=== PATIENT | female | born 1955 | race Caucasian/White ===

== ENCOUNTER 2019-10-29 20:29 | Inpatient (IN) | payer MEDICARE ==
[~2019-10-29] VITALS: Ht 155 cm; Wt 49.0 kg
[~2019-10-29 20:29] MED LIST: BACTRIM DS 8001 TAB PO; FLEXERIL5 MG PO; HYDROCODONE BIT1 T11 PO; IBU800 MG PO; KEFLEX500 M1 PO; MOTRIN800 MG PO; MULTI VITAMINS1 TAB PO; VITAMIN B121000 MC1 PO
[2019-10-29 20:36] VITALS: BP 151/55
--- NOTE | 2019-10-29 21:19 | NUR ---
PT ALSO REPORTS THAT SHE HAS HAD A UTI AND HAD BEEN TAKING BACTRIM BUT HAS BEEN VOMITING IT UP AND NOW WAS PRESCRIBED CIPRO BUT HAS NOT BEEN TO PICK IT UP YET. PT ALSO HAS A HX OF KIDNEY STONES.
[2019-10-29 21:26] LABS: BASO % 0.3 % (0.0-1.0); EOS % 0.2 % (1.0-4.0); HEMATOCRIT 38.9 % (37.0-47.0); LYMPH # 1.5 10*3/uL (1.3-4.4); LYMPH % 11.3 % (27.0-41.0); MEAN CELL VOLUME 91.5 fl (81.0-99.0); MEAN CORPUSCULAR HGB 31.1 pg (27.0-31.0); MEAN CORPUSCULAR HGB CONC 33.9 g/dl (33.0-37.0); MEAN PLATELET VOLUME 10.4 fl (9.6-12.3); MONO # 1.2 10*3/uL (0.1-1.0); MONO % 8.9 % (3.0-9.0); NEUT # 10.1 10*3/uL (2.3-7.9); NEUT % 77.2 % (47.0-73.0); PLATELET COUNT AUTOMATED 234 10*3/uL (130-400); RED BLOOD COUNT 4.25 10*6/uL (4.10-5.10); RED CELL DISTRI WIDTH 12.5 % (0-14.5); WHITE BLOOD COUNT 13.1 10*3/uL (4.8-10.8)
[2019-10-29 21:36] LABS: ACT PARTIAL THROMBO TIME 21.4 SECONDS (20.0-32.1)
[2019-10-29 21:41] LABS: ALBUMIN 2.3 gm/dl (3.1-4.5); ALKALINE PHOSPHATASE 104 U/L (45-117); BUN 25 mg/dl (7-24); CHLORIDE 92 mmol/L (98-107); CREATININE 0.95 mg/dL (0.55-1.02); SGOT/AST 12 IU/L (3-35); SGPT/ALT 21 U/L (12-78); SODIUM 129 mmol/L (136-145); TOTAL PROTEIN 7.2 gm/dL (6.4-8.2)
[2019-10-29 22:11] LABS: CLARITY SL CLOUDY (CLEAR); COLOR YELLOW (YELLOW); GLUCOSE 3+ (NEGATIVE)
[2019-10-29 22:12] LABS: BACTERIA TRACE; BILIRUBIN NEGATIVE (NEGATIVE); BLOOD TRACE-INTACT (NEGATIVE); KETONE TRACE (NEGATIVE); LEUKO ESTERASE TRACE (NEGATIVE); NITRITE NEGATIVE (NEGATIVE); UROBILINOGEN 0.2 E.U./dl (0.2-1.0)
[2019-10-29 22:51] VITALS: BP 155/74
--- NOTE | 2019-10-29 22:51 | NUR ---
PT REPORTS THAT SHE IS FEELING IMPROVED WITH MEDICATIONS GIVEN. SHE IS RESTING IN ROOM. NO SIGNS OF ACUTE DISTRESS NOTED. CALL BLISS WITHIN REACH.
[2019-10-30] VITALS: BP 158/86
[2019-10-30 00:35] VITALS: BP 158/86
--- NOTE | 2019-10-30 00:35 | NUR ---
Time: 34 A 64 year old FEMALE admitted to 4E under services of SCOT CARSON DO. Pt. arrived via wheel chair from ER. Chief complaint: CAME IN WITH C/OABDOMINAL PAIN WHEN VOIDIMG AND S/SOF UTI. JUDY SALAZAR
[2019-10-30] MEDS ORDERED: GOOD SENSE ASPI81 M1 PO (02:17)
[2019-10-30 06:32] LABS: CHOLESTEROL 121 mg/dL (<200); HDL CHOLESTEROL 16 mg/dl (40-60); LDL CHOLESTEROL 74 mg/dL (9-159); TRIGLYCERIDES 153 mg/dl (<150); VLDL CHOLESTEROL 31 mg/dL (6-40)
[2019-10-30 08:00] VITALS: BP 122/55
--- NOTE | 2019-10-30 09:00 | NUR ---
Nursing Teacher in to talk to patient. Patient states lives at home with alone. There are no steps in the home. Physician: kristen liz [facility]acy: [facility] Homeland health services: none Patient's level of ADLs: INDEPENDENT Patient has working utilities: all working DME: none Follow-up physician's appointment after d/c: will be made by hospitalist nurse director upon discharge Does patient want to access PORTAL?: no Discharge plan discussed with patient, she states she lives at home alone, she is independent in adls and ambulation, works, drives, she states she will return home when medically stable and denies any home needs. TERRY REYNOSO
--- NOTE | 2019-10-30 11:32 | NUR ---
Nutritional Support Services Note: Instructed pt on 1800cal diabetic diet. Diet copy given to pt. Pt listened, has a fairly good understanding of the diet. Normally eats three meals daily and has a night snack on occasion. Eats a healhty diet. Encouraged follow up if needed. All questions were answered. Paulina Gupta Rdn Ld
[2019-10-30 12:00] VITALS: BP 156/67
[2019-10-30 16:00] VITALS: BP 132/64
[2019-10-30 20:00] VITALS: BP 137/47
[2019-10-31] VITALS: BP 130/50
[2019-10-31 06:08] LABS: BASO % 0.3 % (0.0-1.0); EOS # 0.1 10*3/uL (0.0-0.4); EOS % 0.8 % (1.0-4.0); HEMATOCRIT 34.7 % (37.0-47.0); LYMPH # 1.2 10*3/uL (1.3-4.4); LYMPH % 9.7 % (27.0-41.0); MEAN CELL VOLUME 93.3 fl (81.0-99.0); MEAN CORPUSCULAR HGB 30.6 pg (27.0-31.0); MEAN CORPUSCULAR HGB CONC 32.9 g/dl (33.0-37.0); MEAN PLATELET VOLUME 10.3 fl (9.6-12.3); MONO # 0.9 10*3/uL (0.1-1.0); MONO % 7.1 % (3.0-9.0); NEUT # 10.2 10*3/uL (2.3-7.9); NEUT % 80.6 % (47.0-73.0); PLATELET COUNT AUTOMATED 245 10*3/uL (130-400); RED BLOOD COUNT 3.72 10*6/uL (4.10-5.10); RED CELL DISTRI WIDTH 12.6 % (0-14.5); WHITE BLOOD COUNT 12.6 10*3/uL (4.8-10.8)
[2019-10-31 06:30] LABS: ALBUMIN 1.8 gm/dl (3.1-4.5); CHLORIDE 106 mmol/L (98-107); POTASSIUM 4.5 mmol/L (3.5-5.1); SGOT/AST 12 IU/L (3-35); SGPT/ALT 16 U/L (12-78); SODIUM 137 mmol/L (136-145)
[2019-10-31 06:34] LABS: ALKALINE PHOSPHATASE 78 U/L (45-117); BUN 19 mg/dl (7-24); CREATININE 0.59 mg/dL (0.55-1.02); TOTAL PROTEIN 5.9 gm/dL (6.4-8.2)
[2019-10-31 08:00] VITALS: BP 133/54
--- NOTE | 2019-10-31 10:30 | NUR ---
Occupational therapy orders received and OT evaluation completed in full on floor four. Patient precautions include fall risk, decreased standing balance, IV, generalized weakness, and ww use. Per OT eval, OT recommends SNF at discharge to maximize patient independence and safety. If refused, OT recommends home with HH SN, OT, and PT with family 05/02 supervision assist in a first floor set-up home with minimal to no steps inside/outside due to patient's balance and safety. [place] complexity [place], [address]. Thank you for this referral. Yas Pagan, OTR/L
--- NOTE | 2019-10-31 11:07 | NUR ---
case management talks with patient, she will return home when medically stable and denies any home needs, case management will follow
--- NOTE | 2019-10-31 11:28 | NUR ---
Physical Therapy evaluation completed on 4th floor with full evaluation to follow. Recommend physical therapy per plan of care and SNF/rehab upon discharge. If pt to go home would recomend home with family/assist 24 hr care full services use of [facility] first floor set up upon discharge as limited mobility and unable to do stairs at this time. Thank you for this referral. Christin Arreguin PT
[2019-10-31 12:00] VITALS: BP 148/48
--- NOTE | 2019-10-31 12:40 | NUR ---
case management received a message from PT and OT that patient would benefit from a short term stay at a [facility] for rehab. case management contacted patient, discussed this with her and educated her that she would receive 5 days of physical and occupational therapy and when medically stable be discharged to home. patient stated she did not want to go to a SNF. she would be returning home and her family would be taking turns staying with her. discussed with her vNA and she declines any home services at this time, case management will follow
[2019-10-31 16:00] VITALS: BP 147/54
[2019-10-31 20:00] VITALS: BP 143/46
--- NOTE | 2019-10-31 20:25 | NUR ---
24 HR chart check completed.
--- NOTE | 2019-10-31 21:00 | NUR ---
SLEEPING, AWAKENS EASILY. RESPIRATIONS EASY. LUNGS DIMINISHED, CLEAR. PULSE OX 100% RA. DENIES DYSURIA. CALL LIGHT WITHIN REACH. NO VOICED COMPLAINTS
[2019-11-01] VITALS: BP 156/52
--- NOTE | 2019-11-01 | NUR ---
SLEEPING. NO DISTRESS NOTED. RESPIRATIONS EASY. VSS. CALL LIGHT WITHIN REACH
--- NOTE | 2019-11-01 06:00 | NUR ---
SLEPT THROUGHOUT NIGHT WITH NO DISTRESS NOTED. RESPIRATIONS EASY. CALL LIGHT WITHIN REACH. NO VOICED COMPLAINTS THIS SHIFT
[2019-11-01 06:39] LABS: BASO # 0.1 10*3/uL (0.0-0.1); BASO % 0.4 % (0.0-1.0); EOS # 0.1 10*3/uL (0.0-0.4); EOS % 0.7 % (1.0-4.0); LYMPH # 1.6 10*3/uL (1.3-4.4); LYMPH % 11.7 % (27.0-41.0); MEAN CELL VOLUME 93.9 fl (81.0-99.0); MEAN CORPUSCULAR HGB 30.9 pg (27.0-31.0); MEAN CORPUSCULAR HGB CONC 32.9 g/dl (33.0-37.0); MONO # 0.8 10*3/uL (0.1-1.0); MONO % 5.7 % (3.0-9.0); NEUT # 10.7 10*3/uL (2.3-7.9); NEUT % 80.3 % (47.0-73.0); PLATELET COUNT AUTOMATED 251 10*3/uL (130-400); RED BLOOD COUNT 3.62 10*6/uL (4.10-5.10); RED CELL DISTRI WIDTH 12.5 % (0-14.5); WHITE BLOOD COUNT 13.4 10*3/uL (4.8-10.8)
[2019-11-01 06:58] LABS: BUN 17 mg/dl (7-24); CHLORIDE 103 mmol/L (98-107); CREATININE 0.67 mg/dL (0.55-1.02); POTASSIUM 4.3 mmol/L (3.5-5.1); SODIUM 136 mmol/L (136-145)
[2019-11-01 08:00] VITALS: BP 127/61
[2019-11-01 12:00] VITALS: BP 142/68
[2019-11-01 16:00] VITALS: BP 135/61
[2019-11-01 20:00] VITALS: BP 119/62
--- NOTE | 2019-11-01 20:15 | NUR ---
PATIENT ASSESSMENT COMPLETED WITHOUT INCIDENT, PATIENT SEATED UP IN CHAIR AND DENIES ANY NEEDS OR COMPLAINTS AT THIS TIME. WILL CONTINUE TO MONITOR.
--- NOTE | 2019-11-01 21:26 | NUR ---
24 HOUR CHART CHECK COMPLETED
[2019-11-02] VITALS: BP 131/53
[2019-11-02 05:58] LABS: BUN 17 mg/dl (7-24); CHLORIDE 103 mmol/L (98-107); CREATININE 0.65 mg/dL (0.55-1.02); POTASSIUM 4.4 mmol/L (3.5-5.1); SODIUM 136 mmol/L (136-145)
[2019-11-02 06:15] LABS: BASO % 0.2 % (0.0-1.0); EOS # 0.1 10*3/uL (0.0-0.4); EOS % 0.8 % (1.0-4.0); LYMPH # 1.6 10*3/uL (1.3-4.4); LYMPH % 12.4 % (27.0-41.0); MEAN CELL VOLUME 93.6 fl (81.0-99.0); MEAN CORPUSCULAR HGB 30.7 pg (27.0-31.0); MEAN CORPUSCULAR HGB CONC 32.9 g/dl (33.0-37.0); MEAN PLATELET VOLUME 10.2 fl (9.6-12.3); MONO # 0.6 10*3/uL (0.1-1.0); MONO % 4.9 % (3.0-9.0); NEUT # 10.2 10*3/uL (2.3-7.9); NEUT % 81.1 % (47.0-73.0); PLATELET COUNT AUTOMATED 300 10*3/uL (130-400); RED BLOOD COUNT 3.74 10*6/uL (4.10-5.10); RED CELL DISTRI WIDTH 12.6 % (0-14.5); WHITE BLOOD COUNT 12.5 10*3/uL (4.8-10.8)
[2019-11-02 08:00] VITALS: BP 146/50
[2019-11-02] MEDS ORDERED: LANTUS SOL100 UNIT/1 SQ (10:01)
[2019-11-02] MEDS ORDERED: NOVOLOG FL100 UNIT/2 SC (10:01)
[2019-11-02] MEDS ORDERED: GLUCOPHAGE500 MG PO (10:02)
--- NOTE | 2019-11-02 10:39 | NUR ---
PT REQUEST RAPID COVID TEST DUE TO FACT THAT SHE WORKS IN [employer]. MIGUELINA RODRIGUEZ AGREED TO PERFORM TEST.
[2019-11-02 12:00] VITALS: BP 148/60
[2019-11-02 16:00] VITALS: BP 153/43
[2019-11-02 20:00] VITALS: BP 158/52
--- NOTE | 2019-11-02 23:43 | NUR ---
24 HOUR CHART CHECK COMPLETED
[2019-11-03] VITALS: BP 126/44
--- NOTE | 2019-11-03 07:00 | NUR ---
ARRIVED ON SHIFT, BED IN LOW POSITION, WHEELLOCKS ENGAGED, BED IN LOW POSITION, SIDE RAILS UP X 2, CALL LIGHT WITHIN REACH, NO NEEDS VOICED AT THIS TIME, WHITE BOARD UPDATED.
[2019-11-03 08:00] VITALS: BP 140/68; BP 145/63
--- NOTE | 2019-11-03 08:03 | NUR ---
Shift chart check completed.
--- NOTE | 2019-11-03 08:30 | NUR ---
case management received a message that patient may not be able to afford her medications and she also needed a bedside commode and a walker and home health, patient has [employer] insurance and given her the choice of companies that accept [employer] she chose [facility]. contact [facility], spoke to Tameka, she transferred the call to Margarita, coordinator of online programs, message was left on her voicemail that patient is discharging home today. case management also contacted [facility] regarding a walker and a bedside commode, neither of these DME companies accept patient's insurance. contacted [facility], spoke to Isa, patient's script and information faxed to [facility]. Isa stated insurance would not pay for a bedside commode and they were waiting on walker to arrive in their story. she stated as soon as the walker arrived they would deliver it to the patient. case management also received a message that patient may be unable to afford her medications. case management contacted Francisco at [facility]. he checked the cost of patient's insurance and stated she still had a deductible of $147 and her two insulin prescriptions would be $287. case management contacted [facility] pharmacy regarding the cost of insulin, each insulin would cost patient $4. educated patient regarding this, she will be getting her prescriptions in [facility] pharmacy. patient's nurse also notified
--- NOTE | 2019-11-03 11:05 | NUR ---
PHYSICAL THERAPY Patient seen this am 1:1 for therapy visit and was sitting up in bedside chair upon therapist arrival. Patient identified by name / and was very pleasant this morning, voicing no new c/o's. OT teachers' assistant was also present for observation only this session as patient transfers sit to stand SBA X 1. Patient ambulates with use of wh walker, 40'x 1, demonstrating very slow, cautious gait pattern, decreased stride and quick onset of fatigue. Patient needed brief standing rest break < 30 seconds, with v/c for purse lip breathing technique to safely complete gait ex. Patient returned to bedside chair and was very unsteady during 180 turn around. Patient remained in bedside chair with call light, tray table and telephone. Will continue per POC as tolerated, total treatment time 14 minutes. Madan Leslie, FAMILY PSYCHOLOGIST
--- NOTE | 2019-11-03 11:05 | NUR ---
OT NOTE Pt was seen this A.M. 1:1 for 15 minute OT session. Upon arrival pt was sitting upright in the recliner. Pt identified by name and and had no complaints at this time. Pt donned B tennis shoes with SBA. Sit to stand then completed from chair level with CGA. Functional mobility was then completed to the bathroom and back with CGA and use of w/w. Throughout pt required one standing rest break due to quick onset of fatigue and having complaints of feeling "a little light headed" educated pt on breathing and relaxation techniques. Challenged pt's static standing tolerance needed for increased I in self care tasks and functional transfers. Pt was able to tolerate aprox 4 minutes at a time before sitting due to fatigue. Pt was left sitting upright in the recliner with call light in hand, tray table in place, and phone in reach. Continue with POC as able. CASA Giraldo/Ana
--- NOTE | 2019-11-03 11:15 | NUR ---
Discharge instructions reviewed with patient/family. Patient receptive and verbalizes understanding. Follow-up care arranged. Written instructions given to patient/family, IV REMOVED. PATIENT TAKEN TO PHARMACY VIA W/C TO LEAD NUCLEAR MEDICINE TECHNOLOGIST OUT PATIENT MEDICATIONS, AND GLUCOMETER. THEN DISCHARGED TO FAMILY, NO QUESTIONS VOICED. MARK LOCO
--- NOTE | 2019-11-04 08:00 | NUR ---
PHYSICAL THERAPY CO-SIGN I approve of the Physical Therapy notes written above. SHELLIE CLEMENTS, PT,DPT
--- NOTE | 2019-11-04 08:22 | NUR ---
OCCUPATIONAL THERAPY CO-SIGN I approve of the Occupational Therapy notes written above. LEONARDO EDOUARD, OTR/L
== END 2019-11-03 11:53 | disposition home or self-care (01) | DRG 871 ==
LOC: EDSTATUS 20:29 → ED 20:30 → 4E 23:21 → EDHOLD 23:21 → 4E 10-30 00:02
PROVIDERS: Hospitalist; Internal Medicine; ADMIT Internal Medicine
DX: A41.9 Sepsis, unspecified organism (principal); E43 Unspecified severe protein-calorie malnutrition; N39.0 Urinary tract infection, site not specified; E87.1 Hypo-osmolality and hyponatremia; Z20.828 Contact with and (suspected) exposure to other viral communicable diseases; E11.65 Type 2 diabetes mellitus with hyperglycemia; R91.1 Solitary pulmonary nodule; Z68.20 Body mass index [BMI] 20.0-20.9, adult; Z79.899 Other long term (current) drug therapy; Z83.3 Family history of diabetes mellitus; Z80.0 Family history of malignant neoplasm of digestive organs; Z79.82 Long term (current) use of aspirin

== ENCOUNTER → 2020-06-12 | Outpatient (CLI) | payer MEDICARE ==
[~2020-06-12] MED LIST changes: +B12 ACTIVE1000 MCG PO; +EYLEA2 MG/0.01 IO; +GLUCOPHAGE500 MG PO; +GOOD SENSE ASPI81 M1 PO; +LANTUS SOL100 UNIT/1 SQ; +LISINOPRIL5 MG PO; +NORCO 5-325 TA1 EACH PO; +NOVOLOG FL100 UNIT/2 SC; +VITAMIN D310 MC3 PO
== END | disposition home or self-care (01) ==
LOC: COVID19 13:33
PROVIDERS: ATTEND Podiatrist
DX: Z01.812 Encounter for preprocedural laboratory examination (principal); Z20.828 Contact with and (suspected) exposure to other viral communicable diseases

== ENCOUNTER → 2020-06-17 | Day surgery (SDC) | payer MEDICARE ==
[~2020-06-17] VITALS: Ht 152.4 cm; Wt 51.7 kg
[2020-06-17 11:25] VITALS: BP 183/80
[2020-06-17 12:34] VITALS: BP 163/74
[2020-06-17 12:49] VITALS: BP 168/77
[2020-06-17 13:03] VITALS: BP 159/81
[2020-06-18 14:13] LABS: ACID FAST SPEC PROCESSING Tissue Grinding (.)
[2020-06-18 14:13] LABS: ACID FAST SPEC PROCESSING Tissue Grinding (.)
== END ==
LOC: SDC 06-14 13:15
PROVIDERS: ATTEND Podiatrist
DX: M86.8X7 Other osteomyelitis, ankle and foot (principal); S91.309A Unspecified open wound, unspecified foot, initial encounter; E11.9 Type 2 diabetes mellitus without complications; I10 Essential (primary) hypertension; Z79.84 Long term (current) use of oral hypoglycemic drugs; Z79.899 Other long term (current) drug therapy; X58.XXXA Exposure to other specified factors, initial encounter; Y93.89 Activity, other specified; Y92.89 Other specified places as the place of occurrence of the external cause; Y99.8 Other external cause status

== ENCOUNTER → 2020-06-18 | Outpatient (CLI) | payer MEDICARE ==
[2020-06-18 09:05] LABS: CREATININE 0.68 mg/dL (0.55-1.02)
== END | disposition home or self-care (01) ==
LOC: LAB 08:33 → CT 09:00
PROVIDERS: Radiology Diagnostic Radiology; ATTEND Physician Assistant
DX: J91.8 Pleural effusion in other conditions classified elsewhere (principal)

== ENCOUNTER → 2021-03-08 | Outpatient (CLI) | payer MEDICARE | END | disposition home or self-care (01) | LOC: US 14:29 | PROVIDERS: ATTEND Podiatrist | DX: R60.0 Localized edema (principal) ==

== ENCOUNTER → 2021-10-05 | Outpatient (CLI) | payer MEDICARE | LOC: WOUNDCARE 14:44 | PROVIDERS: ATTEND Nurse Practitioner Family | DX: E11.621 Type 2 diabetes mellitus with foot ulcer (principal); L97.512 Non-pressure chronic ulcer of other part of right foot with fat layer exposed; L84 Corns and callosities; Z79.4 Long term (current) use of insulin; Z79.84 Long term (current) use of oral hypoglycemic drugs; Z79.899 Other long term (current) drug therapy; Z98.890 Other specified postprocedural states ==

== ENCOUNTER → 2021-10-12 | Outpatient (CLI) | payer MEDICARE | LOC: WOUNDCARE 01:21 | PROVIDERS: ATTEND Nurse Practitioner Family | DX: E11.621 Type 2 diabetes mellitus with foot ulcer (principal); L97.512 Non-pressure chronic ulcer of other part of right foot with fat layer exposed; L84 Corns and callosities; Z79.4 Long term (current) use of insulin; Z79.84 Long term (current) use of oral hypoglycemic drugs; Z79.899 Other long term (current) drug therapy; Z98.890 Other specified postprocedural states ==

== ENCOUNTER → 2021-10-26 | Outpatient (CLI) | payer MEDICARE | END | disposition home or self-care (01) | LOC: WOUNDCARE 01:57 | PROVIDERS: ATTEND Nurse Practitioner Family | DX: E11.621 Type 2 diabetes mellitus with foot ulcer (principal); L97.512 Non-pressure chronic ulcer of other part of right foot with fat layer exposed; L84 Corns and callosities; E11.40 Type 2 diabetes mellitus with diabetic neuropathy, unspecified ==

== ENCOUNTER → 2021-11-23 | Outpatient (CLI) | payer MEDICARE | END | disposition home or self-care (01) | LOC: WOUNDCARE 01:32 | PROVIDERS: ATTEND Nurse Practitioner Family | DX: E11.621 Type 2 diabetes mellitus with foot ulcer (principal); L97.512 Non-pressure chronic ulcer of other part of right foot with fat layer exposed; L84 Corns and callosities; E11.40 Type 2 diabetes mellitus with diabetic neuropathy, unspecified ==

== ENCOUNTER → 2021-12-15 | Outpatient (CLI) | payer MEDICARE | END | disposition home or self-care (01) | LOC: WOUNDCARE 03:13 | PROVIDERS: ATTEND Nurse Practitioner Family | DX: E11.621 Type 2 diabetes mellitus with foot ulcer (principal); L97.512 Non-pressure chronic ulcer of other part of right foot with fat layer exposed; E11.40 Type 2 diabetes mellitus with diabetic neuropathy, unspecified ==

== ENCOUNTER → 2023-09-25 | Outpatient (CLI) | payer MEDICARE | END | disposition home or self-care (01) | LOC: RESCLI 01:33 | PROVIDERS: ATTEND Student in an Organized Health Care Education/Training Program | DX: M79.7 Fibromyalgia (principal); E11.9 Type 2 diabetes mellitus without complications; I10 Essential (primary) hypertension; J30.1 Allergic rhinitis due to pollen; G62.9 Polyneuropathy, unspecified; E78.5 Hyperlipidemia, unspecified; R76.8 Other specified abnormal immunological findings in serum; M85.80 Other specified disorders of bone density and structure, unspecified site; Z82.49 Family history of ischemic heart disease and other diseases of the circulatory system; Z98.890 Other specified postprocedural states; Z79.899 Other long term (current) drug therapy ==

== ENCOUNTER → 2025-02-16 | Outpatient (CLI) | payer MEDICARE | END | disposition home or self-care (01) | LOC: US 09:30 | PROVIDERS: ATTEND Internal Medicine Nephrology | DX: N18.4 Chronic kidney disease, stage 4 (severe) (principal); I10 Essential (primary) hypertension; E11.9 Type 2 diabetes mellitus without complications ==

== ENCOUNTER → 2025-02-26 | Outpatient (CLI) | payer MEDICARE ==
[2025-02-26 17:06] LABS: BILIRUBIN Negative (Negative); BLOOD Negative (Negative); CLARITY Clear (Clear); COLOR Yellow (Yellow); KETONE Negative (Negative); LEUKO ESTERASE Negative (Negative); NITRITE Negative (Negative); PH 6.5 (4.5-8.0); SPECIFIC GRAVITY <= 1.005 (1.001-1.030); UROBILINOGEN 0.2 E.U./dl (0.0-1.0)
[2025-02-26 17:46] LABS: BUN 48.0 mg/dl (9-23); CPK 174.0 U/L (34-171); SGPT/ALT 20.0 U/L (5-49)
[2025-02-27 13:07] LABS: CYTOPLASMIC (C-ANCA) <1:20 titer (Neg:<1:20); PERINUCLEAR (P-ANCA) <1:20 titer (Neg:<1:20)
[2025-02-27 15:07] LABS: FREE KAPPA LIGHT CHAINS 85.7 mg/L (3.3-19.4); FREE LAMBDA LIGHT CHAINS 44.9 mg/L (5.7-26.3); K/L RATIO 1.91 (0.26-1.65)
[2025-02-27 16:08] LABS: A/G RATIO 0.9 (0.7-1.7); BETA GLOBULIN 1.0 g/dL (0.7-1.3); GLOBULIN, TOTAL 3.5 g/dL (2.2-3.9)
== END | disposition home or self-care (01) ==
LOC: LAB 16:06
PROVIDERS: ATTEND Internal Medicine Nephrology
DX: N17.9 Acute kidney failure, unspecified (principal); N04.9 Nephrotic syndrome with unspecified morphologic changes

== ENCOUNTER → 2025-03-14 | Outpatient (CLI) | payer MEDICARE ==
[2025-03-14 11:25] LABS: BUN 37.0 mg/dl (9-23); SGPT/ALT 14.0 U/L (5-49)
== END | disposition home or self-care (01) ==
LOC: LAB 10:46
PROVIDERS: ATTEND Internal Medicine Nephrology
DX: N18.4 Chronic kidney disease, stage 4 (severe) (principal); N04.9 Nephrotic syndrome with unspecified morphologic changes; N17.9 Acute kidney failure, unspecified

== ENCOUNTER → 2025-03-18 | Outpatient (CLI) | payer MEDICARE | LOC: LAB 10:25 | PROVIDERS: ATTEND Internal Medicine Nephrology | DX: N04.9 Nephrotic syndrome with unspecified morphologic changes (principal); N17.9 Acute kidney failure, unspecified ==

== ENCOUNTER 2025-04-18 12:22 | Inpatient (IN) | payer MEDICARE ==
[~2025-04-18] VITALS: Ht 152.4 cm; Wt 67.7 kg
[2025-04-18 12:29] VITALS: BP 188/61
[2025-04-18] MEDS ORDERED: DEXTROSE 10 % IN WATER 250 ML DEHP.FR.BG IV PRN (12:35)
[2025-04-18 15:27] LABS: BASO # 0.0 10*3/uL (0.0-0.1); BASO % 0.6 % (0.0-1.0); EOS # 0.0 10*3/uL (0.0-0.4); EOS % 0.0 % (1.0-4.0); MEAN CELL VOLUME 96.3 fl (81.0-99.0); MEAN CORPUSCULAR HGB 30.7 pg (27.0-31.0); MEAN PLATELET VOLUME 9.4 fl (9.6-12.3); MONO # 0.1 10*3/uL (0.1-1.0); MONO % 1.6 % (3.0-9.0); NEUT # 6.0 10*3/uL (2.3-7.9); NEUT % 89.1 % (47.0-73.0); NUCLEATED RED BLOOD CELL 0.0 % (0.0-0.0); NUCLEATED RED BLOOD CELL 0.0 10*3/uL (0.0-0.0); PLATELET COUNT AUTOMATED 272 10*3/uL (130-400); RED CELL DISTRI WIDTH 13.0 % (0-14.5)
[2025-04-18 15:46] LABS: BUN 35.0 mg/dl (9-23)
[2025-04-18 16:00] VITALS: BP 150/57
[2025-04-18] MEDS ORDERED: SODIUM CHLORIDE 0.9% 100 ML BAG IV ONE (17:10)
[2025-04-18] MEDS ORDERED: Iodixanol 320 100 ML VIAL IV ONE (17:10)
[2025-04-18] MEDS ORDERED: Iodixanol 320 100 ML VIAL ONE (17:46)
[2025-04-18] MEDS ORDERED: SODIUM CHLORIDE 0.9% 100 ML IV ONE (17:46)
[2025-04-18 20:40] VITALS: BP 177/64
[2025-04-18] MEDS ORDERED: ACETAMINOPHEN 325 MG TAB PO PRN (20:50)
[2025-04-18] MEDS ORDERED: Ondansetron Hydrochloride 4 MG/2 ML VIAL IV PRN (20:50)
[2025-04-18] MEDS ORDERED: BISACODYL 5 MG TAB PO PRN (20:50)
[2025-04-18] MEDS ORDERED: ACETAMINOPHEN 650 MG SUPP R PRN (20:50)
[2025-04-18] MEDS ORDERED: Acetaminophen/Hydrocodone 5 MG/325 MG TABLET PO PRN (20:50)
[2025-04-18] MEDS ORDERED: BISACODYL 10 MG SUPP R PRN (20:50)
[2025-04-18] MEDS ORDERED: Albuterol Sulf/Ipratropium 3 ML VIAL NEB SCH (20:55)
[2025-04-18] MEDS ORDERED: DEXTROSE 50% 25 GM/50 ML VIAL IV PRN (20:55)
[2025-04-18] MEDS ORDERED: FUROSEMIDE 40 MG/4 ML VIAL IV SCH (20:55)
[2025-04-18] MEDS ORDERED: GUAIFENESIN 600 MG TAB ER PO SCH (22:00)
[2025-04-18] MEDS ORDERED: INSULIN LISPRO 1 UNIT/0.01 ML SQ SCH (22:00)
[2025-04-18] MEDS ORDERED: AZITHROMYCIN 250 ML IV SCH (23:00)
[2025-04-19] VITALS: BP 153/48
[2025-04-19 06:14] LABS: BASO # 0.1 10*3/uL (0.0-0.1); BASO % 0.8 % (0.0-1.0); EOS # 0.1 10*3/uL (0.0-0.4); EOS % 1.2 % (1.0-4.0); MEAN CELL VOLUME 96.9 fl (81.0-99.0); MEAN CORPUSCULAR HGB 31.1 pg (27.0-31.0); MEAN PLATELET VOLUME 9.6 fl (9.6-12.3); MONO # 0.6 10*3/uL (0.1-1.0); MONO % 8.1 % (3.0-9.0); NEUT # 5.3 10*3/uL (2.3-7.9); NEUT % 70.2 % (47.0-73.0); NUCLEATED RED BLOOD CELL 0.0 % (0.0-0.0); NUCLEATED RED BLOOD CELL 0.0 10*3/uL (0.0-0.0); PLATELET COUNT AUTOMATED 251 10*3/uL (130-400); RED CELL DISTRI WIDTH 13.2 % (0-14.5)
[2025-04-19 06:41] LABS: BUN 35.0 mg/dl (9-23); FREE T4 1.19 ng/dl (0.89-1.76); LDL CHOLESTEROL 84.0 mg/dL (9-159); SGPT/ALT 15.0 U/L (5-49)
[2025-04-19 07:32] LABS: VITAMIN D, 25-HYDROXY 44.9 ng/mL (30-100)
[2025-04-19 08:00] VITALS: BP 176/65
[2025-04-19 12:00] VITALS: BP 121/60
[2025-04-19 16:00] VITALS: BP 158/58
[2025-04-19] MEDS ORDERED: CETIRIZINE HYDR10 MG PO (16:39)
[2025-04-19] MEDS ORDERED: AMITRIPTYLINE10 MG PO (16:39)
[2025-04-19] MEDS ORDERED: ZETIA10 MG PO (16:40)
[2025-04-19] MEDS ORDERED: HYDRALAZINE HYD50 MG PO (16:40)
[2025-04-19] MEDS ORDERED: ROSUVASTATIN CA10 MG PO (16:41)
[2025-04-19] MEDS ORDERED: LOSARTAN POTAS100 M1 PO (16:41)
[2025-04-19] MEDS ORDERED: AMLODIPINE BESYL5 MG PO (16:41)
[2025-04-19] MEDS ORDERED: LANTUS SOL100 UNIT/1 SQ (17:05)
[2025-04-19] MEDS ORDERED: EZETIMIBE 10 MG TAB PO SCH (18:00)
[2025-04-19 20:00] VITALS: BP 184/74
[2025-04-19] MEDS ORDERED: Amitriptyline Hydrochloride 10 MG TAB PO SCH (22:00)
[2025-04-19] MEDS ORDERED: Insulin Glargine, Recombinan 1 UNIT/0.01 ML SC SCH (22:00)
[2025-04-20] VITALS: BP 156/57; BP 179/79
[2025-04-20 06:33] VITALS: BP 155/59
[2025-04-20 06:36] LABS: BASO # 0.1 10*3/uL (0.0-0.1); BASO % 1.3 % (0.0-1.0); EOS # 0.2 10*3/uL (0.0-0.4); EOS % 3.5 % (1.0-4.0); MEAN CELL VOLUME 97.7 fl (81.0-99.0); MEAN CORPUSCULAR HGB 31.9 pg (27.0-31.0); MEAN PLATELET VOLUME 10.0 fl (9.6-12.3); MONO # 0.7 10*3/uL (0.1-1.0); MONO % 11.2 % (3.0-9.0); NEUT # 3.8 10*3/uL (2.3-7.9); NEUT % 61.8 % (47.0-73.0); NUCLEATED RED BLOOD CELL 0.0 % (0.0-0.0); NUCLEATED RED BLOOD CELL 0.0 10*3/uL (0.0-0.0); PLATELET COUNT AUTOMATED 225 10*3/uL (130-400); RED CELL DISTRI WIDTH 13.3 % (0-14.5)
[2025-04-20 07:10] LABS: BUN 40.0 mg/dl (9-23)
[2025-04-20 08:00] VITALS: BP 174/84
[2025-04-20] MEDS ORDERED: ATORVASTATIN CALCIUM 20 MG TAB PO SCH (10:00)
[2025-04-20 12:00] VITALS: BP 156/57
[2025-04-20 16:05] VITALS: BP 169/73
[2025-04-20 20:00] VITALS: BP 172/66
[2025-04-21] VITALS: BP 136/56
[2025-04-21 06:54] LABS: VITAMIN D, 25-HYDROXY 41.9 ng/mL (30-100)
[2025-04-21 07:01] LABS: BUN 43.0 mg/dl (9-23)
[2025-04-21 08:00] VITALS: BP 144/68
[2025-04-21] MEDS ORDERED: CARVEDILOL 6.25 MG TAB PO SCH (10:00)
[2025-04-21 12:00] VITALS: BP 155/66
[2025-04-21 12:58] LABS: BILIRUBIN Negative (Negative); BLOOD Negative (Negative); CLARITY Clear (Clear); COLOR Yellow (Yellow); KETONE Negative (Negative); LEUKO ESTERASE Negative (Negative); NITRITE Negative (Negative); PH 6.5 (4.5-8.0); SPECIFIC GRAVITY <= 1.005 (1.001-1.030); UROBILINOGEN 0.2 E.U./dl (0.0-1.0)
[2025-04-21 13:04] LABS: EPITHELIAL CELLS 0-2; WBC 0-2 wbc/hpf (0-5)
[2025-04-21 16:00] VITALS: BP 122/70
[2025-04-21 20:00] VITALS: BP 166/76
[2025-04-22] VITALS: BP 122/49
[2025-04-22 08:00] VITALS: BP 117/54
[2025-04-22 08:16] VITALS: BP 157/104
[2025-04-22] MEDS ORDERED: MUCUS RELIEF E600 MG PO (13:46)
[2025-04-22] MEDS ORDERED: CARVEDILOL6.25 MG PO (13:46)
[2025-04-22] MEDS ORDERED: ZITHROMAX250 MG PO (13:48)
[2025-04-22 16:00] VITALS: BP 143/64
[2025-04-22] MEDS ORDERED: CALCIUM ACETATE 667 MG CAP PO SCH (17:00)
[2025-04-23] MEDS ORDERED: FERROUS SULFATE 325 MG TAB PO SCH (10:00)
== END 2025-04-22 17:36 | disposition home or self-care (01) | DRG 177 ==
LOC: ED 12:22 → 4E 19:07 → EDHOLD 19:07 → 5E 19:07 → 4E 04-21 17:57
PROVIDERS: Internal Medicine Nephrology; Registered Nurse; Student in an Organized Health Care Education/Training Program; ADMIT Internal Medicine; ATTEND Internal Medicine
DX: J15.69 Pneumonia due to other Gram-negative bacteria (principal); G93.41 Metabolic encephalopathy; I50.31 Acute diastolic (congestive) heart failure; J96.01 Acute respiratory failure with hypoxia; E44.0 Moderate protein-calorie malnutrition; J91.8 Pleural effusion in other conditions classified elsewhere; I13.0 Hypertensive heart and chronic kidney disease with heart failure and stage 1 through stage 4 chronic kidney disease, or unspecified chronic kidney disease; N18.4 Chronic kidney disease, stage 4 (severe); E87.5 Hyperkalemia; E11.42 Type 2 diabetes mellitus with diabetic polyneuropathy; M85.88 Other specified disorders of bone density and structure, other site; E11.22 Type 2 diabetes mellitus with diabetic chronic kidney disease; J98.01 Acute bronchospasm; E78.2 Mixed hyperlipidemia; D64.9 Anemia, unspecified; E66.9 Obesity, unspecified; E11.649 Type 2 diabetes mellitus with hypoglycemia without coma; Z79.4 Long term (current) use of insulin; Z79.899 Other long term (current) drug therapy; Z79.01 Long term (current) use of anticoagulants; Z79.2 Long term (current) use of antibiotics; Z79.82 Long term (current) use of aspirin; Z98.891 History of uterine scar from previous surgery; Z83.3 Family history of diabetes mellitus; Z80.8 Family history of malignant neoplasm of other organs or systems; Z68.29 Body mass index [BMI] 29.0-29.9, adult

== ENCOUNTER → 2025-04-29 | Outpatient (CLI) | payer MEDICARE ==
[~2025-04-29] MED LIST changes: +AMITRIPTYLINE10 MG PO; +AMLODIPINE BESYL5 MG PO; +CARVEDILOL6.25 MG PO; +CETIRIZINE HYDR10 MG PO; +HYDRALAZINE HYD50 MG PO; +LOSARTAN POTAS100 M1 PO; +MUCUS RELIEF E600 MG PO; +ROSUVASTATIN CA10 MG PO; +ZETIA10 MG PO; +ZITHROMAX250 MG PO
[2025-04-29 12:14] LABS: BUN 38.0 mg/dl (9-23); SGPT/ALT 21.0 U/L (5-49)
== END | disposition home or self-care (01) ==
LOC: LAB 11:15
PROVIDERS: ATTEND Internal Medicine Nephrology
DX: N17.9 Acute kidney failure, unspecified (principal); N18.4 Chronic kidney disease, stage 4 (severe); N04.9 Nephrotic syndrome with unspecified morphologic changes

== ENCOUNTER → 2025-07-01 | Outpatient (CLI) | payer MEDICARE ==
[2025-07-01 17:45] LABS: BUN 43.0 mg/dl (9-23)
== END | disposition home or self-care (01) ==
LOC: LAB 16:52
PROVIDERS: ATTEND Internal Medicine Nephrology
DX: E87.5 Hyperkalemia (principal)